=== PATIENT | male | born 1965 | race Caucasian/White ===

== ENCOUNTER 2016-12-26 05:29 | Day surgery (SDC) | payer OTHER ==
[2016-12-20 09:20] VITALS: BMI 34.4
[2016-12-26] MEDS ORDERED: LIDOCAINE HCL 1%, 10 MG/ML (20ML VIAL) ONE (07:20)
[2016-12-26] MEDS ORDERED: BUPIVACAINE HCL/PF 0.5% (5MG/ML) 10 ML VIAL ONE (07:20)
--- NOTE | 2016-12-26 08:20 | HP ---
Satellite [facility] - Chief Complaint Chief Complaint: right ring finger mass History of Present Illness: right ring finger mass History Source: Patient Limitations to Obtaining History: No Limitations - Past Medical History Allergies/Adverse Reactions: Allergies Allergy/AdvReac Type Severity Reaction Status Date / Time Penicillins Allergy Severe Rash Verified 12/26/16 07:54 - Current Medications Current Medications: Home Medications Medication Instructions Recorded Aspirin [ASA -] 81 mg PO DAILY 12/20/16 Atorvastatin Ca [Lipitor] 20 mg PO HS 12/20/16 Ciprofloxacin [Cipro (Restricted 500 mg PO Q12H 12/20/16 To Id)] Docusate Sodium [Colace -] 100 mg PO DAILY 12/20/16 Lisinopril [Prinivil] 20 mg PO DAILY 12/20/16 Meloxicam [Mobic (Nf) -] 15 mg PO DAILY 12/20/16 Metformin HCl 500 mg PO BID 12/20/16 Tadalafil [Cialis] 5 mg PO PRN 12/20/16 Tamsulosin HCl 0.4 mg PO DAILY 12/20/16 Satellite Physical Exam - Physical Examination Vital Signs: Vital Signs Period Temp Pulse Resp BP Sys/Bray Pulse Ox Last 24 Hr 98.1 F 72 20 136/87 96 General Appearance: Well Nourished ENT: Clear Lung: Clear to auscultation Heart: Regular rate & rhythm Breasts: Soft Abdomen: Soft Extremities: No edema Satellite Impression/Plan - Impression/Plan Impression: right ring finger mass Operative Procedure: right ring finger mass excision Date to be Performed: 12/26/16
[2016-12-26] MEDS ORDERED: ONDANSETRON 4 MG/2 ML VIAL IVPUSH PRN (08:38)
[2016-12-26] MEDS ORDERED: oxyCODONE HCL 5 MG TABLET PO PRN (08:38)
[2016-12-26] MEDS ORDERED: LACTATED RINGERS SOLUTION 1,000 ML IV SCH (08:45)
[2016-12-26] MEDS ORDERED: MIDAZOLAM HCL 2 MG/2 ML SINGLE DOSE VIAL ONE (08:50)
[2016-12-26] MEDS ORDERED: PROPOFOL 20 ML ONE (08:50)
[2016-12-26] MEDS ORDERED: LIDOCAINE HCL/PF 2% SDV 5ML VIAL ONE (09:26)
[2016-12-26] MEDS ORDERED: ceFAZolin SODIUM 1 GM VIAL IVPB ONE (09:36)
[2016-12-26] MEDS ORDERED: ceFAZolin SODIUM 1 GM VIAL ONE (09:36)
[2016-12-26] MEDS ORDERED: LIDOCAINE HCL 1%, 10 MG/ML (20ML VIAL) INF ONE (09:47)
[2016-12-26] MEDS ORDERED: BUPIVACAINE HCL/PF 0.5% (5MG/ML) 10 ML VIAL IJ ONE (09:48)
--- NOTE | 2016-12-26 10:00 | OP ---
Operative Note - Note: Operative Date: 12/26/16 Pre-Operative Diagnosis: right ring finger mass Operation: right ring finger mass excision Post-Operative Diagnosis: Same as Pre-op Surgeon: Luis Gonzales Anesthesiologist/ACT TUTOR: Glendy Altamirano Anesthesia: Local, MAC Specimens Removed: mass right ring finger Estimated Blood Loss (mls): 0 Blood Volume Replaced (mls): 0 Fluid Volume Replaced (mls): 500 Operative Report Dictated: Yes
[2016-12-26 11:10] VITALS: TEMP 97.8
--- NOTE | 2016-12-26 11:13 | OP ---
DATE OF OPERATION: DATE OF DICTATION: 12/26/2016 PREOPERATIVE DIAGNOSIS: Right ring finger mass. POSTOPERATIVE DIAGNOSIS: Right ring finger mass. PROCEDURE: Right ring finger mass excision. SURGEON: Luis Gonzales MD ASSISTANTS: None. ANESTHESIA: Glendy Altamirano CRNA. MAC anesthesia. Local injection is 8 mL of 0.5% Marcaine and lidocaine mixed. DRAINS: None. COMPLICATIONS: None. SPECIMEN: Right ring finger mass. BLOOD LOSS: None. BLOOD GIVEN: None. FLUID REPLACEMENT: 500 mL. INDICATION: This patient is a 51-year-old male with a preoperative diagnosis of a painful, hard mass on the volar aspect of his right ring finger around the DIP joint extending into the distal phalanx. After understanding the potential risks, complications, alternatives, and benefits of surgical versus nonsurgical treatment, the patient elected to undergo this procedure. Specifically, the patient understands that there is a chance that this could be something more than just a benign mass, needing additional treatment including additional surgery. There is a 1% chance of recurrence in this or other locations. He will have a scar on the volar aspect of the hand. It may be a hypertrophic scar. It may be uncomfortable, tender. It may require scar care and physical therapy. He understands these and other potential risks which were discussed and has elected to go forward with this procedure. DESCRIPTION OF PROCEDURE: The patient was brought to the operating room. Peripheral IV placed. IV sedation given. Two grams of IV Ancef were given and a tourniquet was applied. The right upper extremity was prepped and draped in the usual sterile fashion, elevated, exsanguinated with an Esmarch bandage, and the tourniquet inflated to 250 mmHg. A longitudinal incision was marked out over the volar aspect of the DIP and distal phalanx with a marking pen. Next, 8 mL of 0.5% Marcaine and 1% lidocaine mixed were injected around the metacarpal head as a metacarpal head block, in the digital nerves, as well as around the surgical incision. After waiting 2 minutes, I then made a longitudinal incision with a number-15 scalpel blade. Subcutaneous hemostasis was achieved with bipolar cautery. The incision was right in the middle of the volar aspect of the finger which was where the mass was and it was far from neurovascular structures. Circumferential dissection was done with curved iris scissors around the hard, small mass right in the middle of the DIP joint and distal phalanx. It was adherent to the volar aspect of the flexor tendon. Careful dissection was done not to damage the flexor tendon. The mass was about 4 x 4 mm in length and roughly spherical. It was hard, seemed to be well encapsulated, did not invade the local tissues. It was passed off the field as specimen. The area was copiously irrigated and washed out. Again, the area was explored both visually and with my finger. I could not see or feel any other abnormal tissue. The area was cauterized at its base, washed out again, and closure done with 4-0 undyed Vicryl in the deep dermal layer, and 4-0 horizontal mattress nylon sutures in the skin. The area was then washed and dried, covered with Xeroform gauze, 4 x 4 gauze, fluffs between the fingers, Webril, and Coban. The tourniquet was taken down, after a total tourniquet time of 12 minutes. There were no complications during the case. The patient tolerated the procedure quite well and was brought to the ambulatory recovery room in stable condition. Siddharth [id number]
[2016-12-26 13:09] VITALS: BP 122/75; PULSE 65
--- NOTE | 2016-12-27 13:51 | PATH ---
Surgical Pathology Report Patient Name: EMILIANO MERRITT [facility]. Rec. #: [id number] /Age/Gender: 1965 (Age: 51) / M Account: [id number] Location: [facility] Taken: 12/25/2016 Received: 12/26/2016 Reported: 12/27/2016 Physicians: Luis Gonzales M.D. Specimen(s) Received MASS OF RIGHT RING FINGER Clinical History Right hand mass Final Diagnosis SOFT TISSUE, RIGHT RING FINGER, EXCISION: SYNOVIUM WITH AREA OF FIBROSIS CONSISTENT WITH FIBROMATOSIS. NO MALIGNANT FEATURES ARE IDENTIFIED. Electronically Signed Carl Cook M.D. Gross Description Received in formalin labeled "mass right ring finger," is a 0.6 x 0.5 x 0.3 cm gray, irregular soft tissue mass. The specimen is submitted in toto in one cassette. /12/26/201612/26/2016
== END 2016-12-26 13:11 | disposition home or self-care (01) ==
LOC: JASU-SURG 05:29
PROVIDERS: ATTEND Orthopaedic Surgery
PROC: 0JBJ0ZZ Excision of Right Hand Subcutaneous Tissue and Fascia, Open Approach (ICD-10-PCS; principal; 2016-12-26 09:00)
DX: D21.11 Benign neoplasm of connective and other soft tissue of right upper limb, including shoulder (principal)
CPT/HCPCS: 88304-TC; 94760